=== PATIENT | female | born 1975 | race Caucasian/White ===

== ENCOUNTER 2019-03-28 20:28 | Inpatient (IN) | payer MEDICARE, MEDICAID ==
[~2019-03-28] VITALS: Ht 157.5 cm; Wt 96.1 kg
[~2019-03-28 20:28] MED LIST: BENZ1TAB10 PO; LISI-618 PO; OMEP20 PO; PARO12.518 PO; RISP1 PO
[2019-03-28] MEDS ORDERED: CITA10TA68 PO (20:47)
[2019-03-28] MEDS ORDERED: PALI3 PO (20:47)
[2019-03-28] MEDS ORDERED: ARIP400S3 IM (20:47)
[2019-03-28 21:25] LABS: BASOPHILS % (AUTO) 0.4 % (0.0-2.0); EOSINOPHILS % (AUTO) 0 % (1.0-6.0); HEMATOCRIT 37.9 % (36-46); HEMOGLOBIN 12.2 g/dL (12.0-16.0); LYMPHOCYTES # (AUTO) 1.4 K/uL (1.0-4.8); LYMPHOCYTES % (AUTO) 14.2 % (22.0-44.0); MEAN CORPUSCULAR HEMOGLOBIN 25.6 pg (26.0-34.0); MEAN CORPUSCULAR HGB CONC 32.1 G/dL (31.0-37.0); MEAN CORPUSCULAR VOLUME 80 fL (80-100); MONOCYTES # (AUTO) 0.3 K/uL (0.1-1.0); MONOCYTES % (AUTO) 3.2 % (2.0-9.0); NEUTROPHILS # (AUTO) 8.3 K/uL (1.8-7.7); NEUTROPHILS % (AUTO) 82.2 % (40.0-70.0); PLATELET COUNT (AUTO) 294 K/uL (150-450); RED BLOOD CELL COUNT(AUTO) 4.74 MIL/uL (4.00-5.20); RED CELL DISTRIBUTION WIDTH 14.8 % (11.5-14.5)
[2019-03-28 21:36] LABS: ANION GAP 8 mmol/L (8-16); CALCIUM, TOTAL 9.1 mg/dL (8.8-10.5); CARBON DIOXIDE 27 mmol/L (22-29); CHLORIDE 105 mmol/L (98-107); CREATININE 0.94 mg/dL (0.60-1.30); GLOMERULAR FILTR. RATE CALC > 60 mL/min (>60); GLUCOSE,RANDOM 257 mg/dL (70-110); POTASSIUM 3.8 mmol/L (3.5-5.1); SODIUM SERUM 140 mmol/L (136-145); UREA NITROGEN, BLOOD 9 mg/dL (7-18)
[2019-03-28] MEDS ORDERED: LORazepam 2 MG TABLET PO ONE (21:45)
[2019-03-28 21:52] LABS: ALANINE AMINOTRANSFERASE 82 U/L (12-78); ALBUMIN 3.5 g/dL (3.4-5.0); ALKALINE PHOSPHATASE 127 U/L (46-116); ASPARTATE AMINOTRANSFERASE 55 U/L (15-37); BILIRUBIN,TOTAL 0.1 mg/dL (0.1-1.0); HCG,QUANTITATIVE < 1 mIU/mL (0-6)
[2019-03-28] MEDS ORDERED: HALOPERIDOL 5 MG TABLET PO PRN (22:00)
[2019-03-28 22:33] LABS: CHOL/HDL RATIO 3.3 (3.9-5.7); CHOLESTEROL 139 mg/dL (131-200); FREE T4 (FREE THYROXINE) 1.03 ng/dL (0.76-1.46); HDL CHOLESTEROL 42 mg/dL (40-60); LDL CHOL (CALC.) 84 mg/dL (0-130); THYROID STIMULATING HORMONE 0.38 uIU/mL (0.36-3.74); TRIGLYCERIDES 67 mg/dL (15-150)
[2019-03-28 22:33] LABS: AMPHET/METH SCREEN,URINE NEGATIVE (NEGATIVE); BARBITURATE SCREEN, URINE NEGATIVE (NEGATIVE); BENZODIAZEPINES SCREEN,URINE NEGATIVE (NEGATIVE); CANNABINOID SCREEN,URINE NEGATIVE (NEGATIVE); COCAINE SCREEN,URINE NEGATIVE (NEGATIVE); METHADONE SCREEN, URINE NEGATIVE (NEGATIVE); OPIATE SCREEN,URINE NEGATIVE (NEGATIVE)
[2019-03-28 22:34] LABS: PHENCYCLIDINE SCREEN,URINE NEGATIVE (NEGATIVE)
[2019-03-28] MEDS ORDERED: ONDANSETRON HCL 4 MG TABLET PO ONE (23:15)
[2019-03-29 00:30] VITALS: BP 131/76
[2019-03-29] MEDS: ZOLPIDEM TARTRATE 10 MG TABLET PO PRN (00:58)
[2019-03-29] MEDS ORDERED: PNEUMOCOCCAL VACCINE POLYVALENT 0.5 ML VIAL [PPSV23] IM ONE (02:45)
[2019-03-29] MEDS ORDERED: PETROLATUM,WHITE 28 GM JELLY TP PRN (06:30)
[2019-03-29] MEDS ORDERED: ALBUTEROL SULFATE HFA 90 MCG/PUFF 8 GM INHALER IH PRN (06:30)
[2019-03-29] MEDS ORDERED: MAGNESIUM HYDROXIDE SUSPENSION 30 ML UDCUP PO PRN (06:30)
[2019-03-29] MEDS ORDERED: MAG HYDROX/AL HYDROX/SIMETH ES 30 ML SUSPENSION UDCUP PO PRN (06:30)
[2019-03-29] MEDS ORDERED: CloNIDine HCL 0.1 MG TABLET PO PRN (06:30)
[2019-03-29] MEDS ORDERED: GuaiFENesin/D-METHORPHAN [SUGAR-FREE] 200-20MG/10 ML SYRUP UDCUP PO PRN (06:30)
[2019-03-29] MEDS ORDERED: DOCUSATE SODIUM 100 MG CAPSULE PO PRN (06:30)
[2019-03-29] MEDS ORDERED: NICOTINE 14 MG/24 HOUR PATCH TD PRN (06:30)
[2019-03-29] MEDS ORDERED: ONDANSETRON HCL 4 MG TABLET PO PRN (06:30)
[2019-03-29] MEDS ORDERED: IBUPROFEN 400 MG TABLET PO PRN (06:30)
[2019-03-29] MEDS ORDERED: ACETAMINOPHEN 325 MG TABLET PO PRN (06:30)
[2019-03-29] MEDS ORDERED: LOPERAMIDE HCL 2 MG CAPSULE PO PRN (06:30)
[2019-03-29 08:00] VITALS: BP 113/60
[2019-03-29] MEDS: CITALOPRAM HYDROBROMIDE 10 MG TABLET PO SCH (12:42)
[2019-03-29] MEDS: PALIPERIDONE 3 MG ER TABLET PO SCH (12:42)
[2019-03-29 16:07] VITALS: BP 117/68
[2019-03-29 17:57] VITALS: BP 114/72
[2019-03-29 18:57] VITALS: BP 114/72
[2019-03-30 01:04] VITALS: BP 136/67
[2019-03-30 07:53] LABS: BASOPHILS % (AUTO) 0.5 % (0.0-2.0); EOSINOPHILS % (AUTO) 1.5 % (1.0-6.0); HEMATOCRIT 38.1 % (36-46); HEMOGLOBIN 11.9 g/dL (12.0-16.0); LYMPHOCYTES # (AUTO) 5.3 K/uL (1.0-4.8); LYMPHOCYTES % (AUTO) 41.6 % (22.0-44.0); MEAN CORPUSCULAR HEMOGLOBIN 25.1 pg (26.0-34.0); MEAN CORPUSCULAR HGB CONC 31.1 G/dL (31.0-37.0); MEAN CORPUSCULAR VOLUME 81 fL (80-100); MONOCYTES # (AUTO) 0.8 K/uL (0.1-1.0); MONOCYTES % (AUTO) 6.6 % (2.0-9.0); NEUTROPHILS # (AUTO) 6.3 K/uL (1.8-7.7); NEUTROPHILS % (AUTO) 49.8 % (40.0-70.0); PLATELET COUNT (AUTO) 272 K/uL (150-450); RED BLOOD CELL COUNT(AUTO) 4.72 MIL/uL (4.00-5.20)
[2019-03-30 08:08] VITALS: BP 100/52
[2019-03-30 08:22] LABS: ALANINE AMINOTRANSFERASE 86 U/L (12-78); ALKALINE PHOSPHATASE 78 U/L (46-116); ANION GAP 9 mmol/L (8-16); ASPARTATE AMINOTRANSFERASE 66 U/L (15-37); BILIRUBIN,TOTAL 0.1 mg/dL (0.1-1.0); CALCIUM, TOTAL 8.2 mg/dL (8.8-10.5); CARBON DIOXIDE 22 mmol/L (22-29); CHLORIDE 107 mmol/L (98-107); CHOL/HDL RATIO 3.4 (3.9-5.7); CHOLESTEROL 134 mg/dL (131-200); CREATININE 0.71 mg/dL (0.60-1.30); GLOMERULAR FILTR. RATE CALC > 60 mL/min (>60); GLUCOSE,RANDOM 82 mg/dL (70-110); HDL CHOLESTEROL 39 mg/dL (40-60); LDL CHOL (CALC.) 85 mg/dL (0-130); POTASSIUM 4.4 mmol/L (3.5-5.1); SODIUM SERUM 138 mmol/L (136-145); THYROID STIMULATING HORMONE 2.71 uIU/mL (0.36-3.74); TOTAL PROTEIN, SERUM 6.7 g/dL (6.4-8.2); TRIGLYCERIDES 52 mg/dL (15-150); UREA NITROGEN, BLOOD 9 mg/dL (7-18)
[2019-03-30 08:47] LABS: HEMOGLOBIN A1C 6.2 % (4.5-6.2)
[2019-03-30] MEDS: PALIPERIDONE 3 MG ER TABLET PO SCH (08:47)
[2019-03-30] MEDS: CITALOPRAM HYDROBROMIDE 10 MG TABLET PO SCH (08:47)
[2019-03-30] MEDS: OMEPRAZOLE 20 MG CAPSULE PO SCH (08:47)
[2019-03-30] MEDS: LISINOPRIL 20 MG TABLET PO SCH (08:47)
[2019-03-30 16:07] VITALS: BP 106/66
[2019-03-31 05:39] VITALS: BP 136/88
[2019-03-31 08:36] VITALS: BP 113/76
[2019-03-31] MEDS: CITALOPRAM HYDROBROMIDE 10 MG TABLET PO SCH (08:48)
[2019-03-31] MEDS: LISINOPRIL 20 MG TABLET PO SCH (08:48)
[2019-03-31] MEDS: OMEPRAZOLE 20 MG CAPSULE PO SCH (08:48)
[2019-03-31] MEDS: PALIPERIDONE 3 MG ER TABLET PO SCH (08:48)
[2019-03-31 16:31] VITALS: BP 108/65
[2019-04-01] MEDS: LORazepam 2 MG TABLET PO PRN ×2 (04:42→08:52)
[2019-04-01 05:51] VITALS: BP 110/68
[2019-04-01 08:10] VITALS: BP 103/65
[2019-04-01] MEDS: CITALOPRAM HYDROBROMIDE 10 MG TABLET PO SCH (08:29)
[2019-04-01] MEDS: LISINOPRIL 20 MG TABLET PO SCH (08:29)
[2019-04-01] MEDS: OMEPRAZOLE 20 MG CAPSULE PO SCH (08:29)
[2019-04-01] MEDS: PALIPERIDONE 3 MG ER TABLET PO SCH (08:29)
[2019-04-01 16:06] VITALS: BP 106/65
[2019-04-02 01:14] VITALS: BP 116/74
[2019-04-02] MEDS: ZOLPIDEM TARTRATE 10 MG TABLET PO PRN (01:22)
[2019-04-02] MEDS: LORazepam 2 MG TABLET PO PRN (01:22)
[2019-04-02 08:33] VITALS: BP 118/84
[2019-04-02] MEDS: OMEPRAZOLE 20 MG CAPSULE PO SCH (08:37)
[2019-04-02] MEDS: PALIPERIDONE 3 MG ER TABLET PO SCH (08:37)
[2019-04-02] MEDS: CITALOPRAM HYDROBROMIDE 20 MG TABLET PO SCH (08:37)
[2019-04-02] MEDS: LISINOPRIL 20 MG TABLET PO SCH (08:37)
[2019-04-02 18:09] VITALS: BP 124/72
[2019-04-03 04:40] VITALS: BP 137/85
[2019-04-03] MEDS: LORazepam 2 MG TABLET PO PRN (04:40)
[2019-04-03 08:25] VITALS: BP 109/79
[2019-04-03] MEDS: PALIPERIDONE 3 MG ER TABLET PO SCH (09:04)
[2019-04-03] MEDS: CITALOPRAM HYDROBROMIDE 20 MG TABLET PO SCH (09:04)
[2019-04-03] MEDS: OMEPRAZOLE 20 MG CAPSULE PO SCH (09:04)
[2019-04-03] MEDS: LISINOPRIL 20 MG TABLET PO SCH (09:04)
[2019-04-03] MEDS ORDERED: CITA-106 PO (10:11)
== END 2019-04-03 11:20 | disposition home or self-care (01) | DRG 885 ==
LOC: EMS 20:28 → B2X 22:00
PROC: 3E0234Z Introduction of Serum, Toxoid and Vaccine into Muscle, Percutaneous Approach (ICD-10-PCS; principal; 2019-03-29)
DX: F25.1 Schizoaffective disorder, depressive type (principal); B18.2 Chronic viral hepatitis C; R45.851 Suicidal ideations; Z23 Encounter for immunization; Z91.5 Personal history of self-harm; I10 Essential (primary) hypertension; K21.9 Gastro-esophageal reflux disease without esophagitis; Z79.899 Other long term (current) drug therapy; F43.10 Post-traumatic stress disorder, unspecified; F17.200 Nicotine dependence, unspecified, uncomplicated; F10.10 Alcohol abuse, uncomplicated; E66.9 Obesity, unspecified; F41.9 Anxiety disorder, unspecified; R73.9 Hyperglycemia, unspecified; Z71.41 Alcohol abuse counseling and surveillance of alcoholic; Z71.6 Tobacco abuse counseling
CPT/HCPCS: 80074; 83036; 84439; 84443; 90471; 90732; G0480; Q0162